=== PATIENT | female | born 1980 | race Caucasian/White ===

== ENCOUNTER 2024-08-07 15:12 | Emergency (ER) | payer SELFPAY ==
--- NOTE | ~2024-08-07 | CT_ITS ---
CT brain wo con Ordering provider: Rosa Gama History: 44 years Female with . migraine . Comparison: None. Technique: CT of the head without contrast. Radiation reduction technique utilized.The dose-length p roduct was 605.33 mGy-cm FINDINGS: BRAIN PARENCHYMA AND CSF SPACES: No midline shift, mass effect or hemorrhage. The brain parenchyma a nd CSF spaces are otherwise normal. VISUALIZED PARANASAL SINUSES: Bilateral ethmoid sinus disease. MASTOIDS: Well aerated. BONES: The bones appear intact. SOFT TISSUES: Visualized nasopharynx is normal. Superficial soft tissues are normal. IMPRESSION: No acute intracranial findings. Reviewed, dictated and finalized at location A. [employer]
--- NOTE | 2024-08-07 15:28 | ED.NAVMDI ---
HPI - Nausea/Vomiting/Diarrhea General Chief complaint: Nausea/Vomiting/Diarrhea <Rosa Gama PA-C - Last Filed: 08/09/24 09:11> Stated complaint: n/v I need reglan <Rosa Gama PA-C - Last Filed: 08/09/24 09:11> Time Seen by Provider: 08/07/24 15:28 <Rosa Gama PA-C - Last Filed: 08/09/24 09:11> Focused HPI: This is a 44 year old female that presents to the ER for migraine. Reports associated nausea and vomiting. 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 GENERAL: Uncomfortable, well-nourished HEAD: Normocephalic, atraumatic. CHEST: Clear to auscultation. ?No respiratory distress. HEART: Regular rate and rhythm.? NEURO: ?Alert and oriented x3. Patient screened in triage and initial orders placed.? ?Additional care and disposition to be based upon?diagnostic testing and treatment. <Rosa Gama PA-C - Last Filed: 08/09/24 09:11> History of Present Illness HPI Narrative: patient 44-year-old female presents emergency department chief complaint of migraine headache. The patient reports she has had nausea vomiting and reports that she feels like this whenever she needs Reglan. The patient reports that she still feels somewhat nauseated reports the headache is doing a little bit better <Markos Ramirez MD - Last Filed: 08/08/24 00:53> Related Data Allergies/Adverse reactions: Allergies Allergy/AdvReac Type Severity Reaction Status Date / Time hydrocodone Allergy Unknown Verified 01/07/09 10:47 NFA Allergy Unknown Uncoded 03/18/03 11:33 NKDA Allergy Unknown Uncoded 03/18/03 11:33 CODEINE (Generic Allergy) Allergy Y Uncoded 03/18/03 12:27 <Rosa Gama PA-C - Last Filed: 08/09/24 09:11> Review of Systems Review of Systems: A 10 system review of systems was completed on the patient and is negative except for what is stated in the HPI. Nursing and ancillary documentation was reviewed. <Markos Ramirez MD - Last Filed: 08/08/24 00:53> [facility] Past Medical History Medical History: Medical History (Updated 08/09/24 @ 09:11 by Rosa Gama PA-C) History of migraine <Rosa Gama PA-C - Last Filed: 08/09/24 09:11> Social History Social History: Social History (Updated 08/09/24 @ 09:10 by Rosa Gama PA-C) Substance use: never <Rosa Gama PA-C - Last Filed: 08/09/24 09:11> Exam Narrative: GENERAL: Well-appearing, well-nourished, and in no acute distress. HEAD: Normocephalic, atraumatic. EYES: PERRLA and EOMI. ENT: Nares clear, no rhinorrhea or epistaxis. Mucous membranes moist. NECK: Supple. CHEST: Clear to auscultation. No respiratory distress. HEART: Regular rate and rhythm. No murmur heard. Normal peripheral pulses. ABDOMEN: Soft, nontender, nondistended, normal active bowel sounds. EXTREMITIES: Normal range of motion. No edema. SKIN: Warm, dry, no rash. NEURO: No focal deficits. Alert and oriented x3. PSYCH: Normal mood and affect. <Markos Ramirez MD - Last Filed: 08/08/24 00:53> Course Vital Signs Vital signs: Vital Signs Temperature 97.2 F L 08/07/24 15:31 Pulse Rate 61 08/07/24 15:31 Respiratory Rate 18 08/07/24 15:31 Blood Pressure 184/111 H 08/07/24 15:31 Pulse Oximetry 100 08/07/24 15:31 Temperature 97.6 F 08/07/24 18:50 Pulse Rate 91 08/08/24 00:39 Respiratory Rate 17 08/08/24 00:39 Blood Pressure 185/115 H 08/08/24 00:39 Pulse Oximetry 100 08/08/24 00:39 <Rosa Gama PA-C - Last Filed: 08/09/24 09:11> Vital Signs Temperature 97.2 F L 08/07/24 15:31 Pulse Rate 61 08/07/24 15:31 Respiratory Rate 18 08/07/24 15:31 Blood Pressure 184/111 H 08/07/24 15:31 Pulse Oximetry 100 08/07/24 15:31 Temperature 97.6 F 08/07/24 18:50 Pulse Rate 91 08/08/24 00:39 Respiratory Rate 17 08/08/24 00:39 Blood Pressure 185/115 H 08/08/24 00:39 Pulse Oximetry 100 08/08/24 00:39 <Markos Ramirez MD - Last Filed: 08/08/24 00:53> MDM - Nausea/Vomiting/Diarrhea MDM Narrative Medical decision making narrative: differential diagnosis includes dehydration, migraine headache, CT brain showed no acute abnormalities. The patient received IV fluids antiemetics and is feeling somewhat better additional dose of antiemetic was given to the patient which has provided additional improvement. The patient will be discharged home with a prescription for Zofran <Markos Ramirez MD - Last Filed: 08/08/24 00:53> Imaging Data Radiologist's impression: ITS Impressions Head CT 08/07/24 16:55 IMPRESSION: No acute intracranial findings. <Rosa Gama PA-C - Last Filed: 08/09/24 09:11> Critical Care Time Critical Care Time Critical Care Time: No <Rosa Gama PA-C - Last Filed: 08/09/24 09:11> Discharge Plan Discharge Clinical Impression: Headache, migraine, Nausea and vomiting <Rosa Gama PA-C - Last Filed: 08/09/24 09:11> Patient Disposition: Home, Self-Care <MIRANDA Judge Last Filed: 08/09/24 09:11> Condition: Stable <MIRANDA Judge Last Filed: 08/09/24 09:11> Instructions: Antibiotic Form, Acute Headache (ED), Acute Nausea and Vomiting (ED) <Rosa Gama PA-C - Last Filed: 08/09/24 09:11> Prescriptions: New ondansetron 4 mg tablet,disintegrating 4 mg PO Q8H PRN (Reason: nausea and vomiting) Qty: 10 0RF <Rosa Gama PA-C - Last Filed: 08/09/24 09:11> Follow-up/Referrals: PHYSICIAN NOT ON STAFF,NONSTAFF [Non-Staff] - <Rosa Gama PA-C - Last Filed: 08/09/24 09:11> Time of Disposition: 00:52 <Rosa Gama PA-C - Last Filed: 08/09/24 09:11> 00:52 <Markos Ramirez MD - Last Filed: 08/08/24 00:53>
[2024-08-07 15:31] VITALS: BP 184/111; PULSE 61; RESP 18; TEMP 36.2; O2SAT 100
[2024-08-07 18:50] VITALS: BP 172/103; PULSE 77; RESP 16; TEMP 36.4; O2SAT 100
[2024-08-07] MEDS: METOCLOPRAMIDE HCL INJ 10 MG/2 ML VIAL IV PUSH (22:37)
[2024-08-07] MEDS: SODIUM CHLORIDE 0.9% IV 1,000 ML 999 ML IV CONT (22:37)
[2024-08-07] MEDS: diphenhydrAMINE HCl INJ 50 MG/ML VIAL 25 MG IV PUSH (22:37)
[2024-08-07] MEDS: KETOROLAC 15 MG/ML VIAL (*BKC) IV PUSH (22:37)
[2024-08-07 22:43] VITALS: BP 185/109; PULSE 82; RESP 18; O2SAT 100
[2024-08-08] MEDS: PROCHLORPERAZINE EDISYLATE 10 MG/2 ML VIAL IV PUSH (00:28)
[2024-08-08] MEDS: diphenhydrAMINE HCl INJ 50 MG/ML VIAL IV PUSH (00:28)
[2024-08-08 00:39] VITALS: BP 185/115; PULSE 91; RESP 17; O2SAT 100
== END 2024-08-08 01:15 | disposition home or self-care (01) ==
PROVIDERS: Emergency Provider Emergency Medicine
DX: G43.909 Migraine, unspecified, not intractable, without status migrainosus (principal); R11.2 Nausea with vomiting, unspecified; Z87.820 Personal history of traumatic brain injury
CPT/HCPCS: 70450; 96361; 96374; 96375; 99284; A9270; J0780; J1200; J1885; J2765; J7030